=== PATIENT | female | born 1945 | race Caucasian/White ===

== ENCOUNTER 2017-01-14 10:37 | Emergency (ER) | payer BC ==
--- NOTE | 2017-01-14 10:36 | EDM.PDOC ---
ED HPI GENERAL MEDICAL PROBLEM - General Chief Complaint: Lower Extremity Injury/Pain Stated Complaint: IN BY AMBULANCE Time Seen by Provider: 01/14/17 10:35 Source of Information: Reports: Patient, EMS, RN, RN Notes Reviewed History Limitations: Reports: No Limitations - History of Present Illness INITIAL COMMENTS - FREE TEXT/NARRATIVE: Arrives from home by ambulance with c/o left hip pain sustained from a ground level fall while getting out of her truck in the garage. Denies head injury, or any other injury. Onset: Today Duration: Constant Location: Reports: Lower Extremity, Left Quality: Reports: Ache Severity: Moderate Improves with: Reports: Immobilization Worsens with: Reports: Movement Context: Reports: Other (fall) Associated Symptoms: Reports: No Other Symptoms Left Hip Pain Score (Numeric/FACES): 9 - Related Data Allergies Allergy/AdvReac Type Severity Reaction Status Date / Time No Known Allergies Allergy Verified 01/14/17 10:53 Home Meds: Home Meds Aspirin [Ecotrin] 81 mg PO DAILY 01/14/17 [History] Simvastatin [Simvastatin] 20 mg PO DAILY 01/14/17 [History] amLODIPine Besylate [Amlodipine Besylate] 5 mg PO DAILY 01/14/17 [History] Social & Family History - Family History Family Medical History: Noncontributory - Living Situation & Occupation Living situation: Reports: , with Spouse Occupation: Retired Review of Systems - Review of Systems Review Of Systems: ROS reveals no pertinent complaints other than HPI. ED EXAM, GENERAL - Physical Exam Exam: See Below Exam Limited By: No Limitations General Appearance: Alert, WD/WN, No Apparent Distress Nose: Normal Inspection Throat/Mouth: Normal Inspection, Normal Voice, No Airway Compromise Head: Atraumatic, Normocephalic Neck: Normal Inspection, Supple, Non-Tender, Full Range of Motion Respiratory/Chest: No Respiratory Distress, Lungs Clear, No Accessory Muscle Use Cardiovascular: Regular Rate, Rhythm GI/Abdominal: Normal Bowel Sounds, Soft, Non-Tender, No Distention Back Exam: Normal Inspection Extremities: Limited Range of Motion (left hip), Other (left hip tender to palp. with palpable deformity) Neurological: Alert, Oriented, CN II-XII Intact, Normal Cognition, No Motor/ Sensory Deficits Psychiatric: Normal Affect, Normal Mood Skin Exam: Warm, Dry, Intact, Normal Color, No Rash ED TRAUMA EXTREMITY PROCEDURES - Splinting Left Lower Extremity Splint Site: Left femur fracture Pre-Procedure NV Status: Normal Post-Procedure NV Status: Normal Splint Material: Other (Hare traction) Splint Design: Other (Hare traction) Applied & Form Fitted By: Provider Provider Post-Splint Application NV Check: NV Status Normal, Good Position Complications: No Course - Vital Signs Last Recorded V/S: Last Vital Signs Temp 36.4 C 01/14/17 11:36 Pulse 80 01/14/17 11:36 Resp 18 01/14/17 11:36 BP 123/52 L 01/14/17 11:36 Pulse Ox 95 01/14/17 11:36 - Orders/Labs/Meds Orders: Active Orders 24 hr Category Date Time Status Peripheral IV Care [RC] . DIRECTED Care 01/14/17 10:41 Active Sodium Chloride 0.9% [Saline Flush] Med 01/14/17 10:40 Active 10 ml FLUSH ASDIRECTED PRN Peripheral IV Insertion Adult [OM.PC] Stat Oth 01/14/17 10:40 Ordered Medication Orders Sodium Chloride (Saline Flush) 10 ml FLUSH ASDIRECTED PRN PRN Reason: Keep Vein Open Meds: Medications Generic Name Dose Route Start Last Admin Trade Name Freq PRN Reason Stop Dose Admin Sodium Chloride 10 ml 01/14/17 10:40 Saline Flush FLUSH ASDIRECTED PRN Keep Vein Open Discontinued Medications Generic Name Dose Route Start Last Admin Trade Name Freq PRN Reason Stop Dose Admin Fentanyl 100 mcg 01/14/17 11:01 01/14/17 11:14 Sublimaze IVPUSH 01/14/17 11:02 100 mcg ONETIME ONE Administration Midazolam HCl 2 mg 01/14/17 11:01 01/14/17 11:17 Versed 1 Mg/Ml IVPUSH 01/14/17 11:02 2 mg ONETIME ONE Administration Ondansetron HCl 4 mg 01/14/17 11:01 01/14/17 11:14 Zofran IV 01/14/17 11:02 4 mg ONETIME ONE Administration - Radiology Interpretation Free Text/Narrative:: Xray Left hip: displaced left proximal spiral femur shaft fracture; see Rad. report. - Re-Assessments/Exams Free Text/Narrative Re-Assessment/Exam: 01/14/17 10:47 Pt declines pain medication at time of initial exam. Departure - Departure Time of Disposition: 13:09 Disposition: DC/Tfer to Acute Hospital 02 Condition: Serious Clinical Impression: Closed femur fracture Qualifiers: Encounter type: initial encounter Femur location: shaft Fracture morphology: spiral Fracture alignment: displaced Laterality: left Qualified Code(s): S72.342A - Displaced spiral fracture of shaft of left femur, initial encounter for closed fracture - Discharge Information Forms: ED Department Discharge, Interfacility Transfer EMTALA - My Orders Last 24 Hours: My Active Orders 01/14/17 10:40 Sodium Chloride 0.9% [Saline Flush] 10 ml FLUSH ASDIRECTED PRN Peripheral IV Insertion Adult [OM.PC] Stat 01/14/17 10:41 Peripheral IV Care [RC] . DIRECTED - Assessment/Plan Last 24 Hours: My Active Orders 01/14/17 10:40 Sodium Chloride 0.9% [Saline Flush] 10 ml FLUSH ASDIRECTED PRN Peripheral IV Insertion Adult [OM.PC] Stat 01/14/17 10:41 Peripheral IV Care [RC] . DIRECTED
[2017-01-14] MEDS ORDERED: Sodium Chloride 0.9% 10 ML Syringe FLUSH PRN (10:40)
[2017-01-14] MEDS ORDERED: fentaNYL 100 MCG/2 ML SDV IVPUSH ONE (11:01)
[2017-01-14] MEDS ORDERED: Ondansetron 4 MG/2 ML SDV IV ONE (11:01)
[2017-01-14] MEDS ORDERED: Midazolam 1 MG/ML 2 ML SDV IVPUSH ONE (11:01)
--- NOTE | 2017-01-14 11:15 | CR ---
Clinical history: 71-year-old female injured left hip (ground-level fall) Interpretation: Abnormal. Single view proximal left femur and ipsilateral hip confirm acute, displaced (offset) spiral fractur e shaft proximal left femur. (6 cm below the infratrochanteric process and proximally 6 cm of lateral overlap at the fracture by the proximal femur) Generally good bone mineral density for age and no signs of ipsilateral left femoral neck fracture o r left hip joint dislocation.
[2017-01-14 11:37] VITALS: BP 123/52
--- NOTE | 2017-01-14 12:03 | CR ---
Clinical history: 71-year-old female emergency department reduction acute fracture shaft proximal le ft femur. Interpretation: Persistent medial offset (now 2.5 cm) of the distal fragment but remarkable "reducti on" and realignment (straightening) fragments at the proximal diaphyseal fracture site, left femur.
== END 2017-01-14 14:00 ==
LOC: DL.ED 10:37
DX: S72.342A Displaced spiral fracture of shaft of left femur, initial encounter for closed fracture (principal); Z79.82 Long term (current) use of aspirin; Z79.899 Other long term (current) drug therapy; W17.89XA Other fall from one level to another, initial encounter; Y92.59 Other trade areas as the place of occurrence of the external cause
CPT/HCPCS: 29505; 73501; 73551; 96374; 96375; 99285; J2250; J2405; J3010

== ENCOUNTER 2024-09-11 21:51 | Emergency (ER) | payer BC ==
[2024-09-11 22:16] LABS: HEMATOCRIT 31.3 % (37.0-47.0); HEMOGLOBIN 7.7 g/dL (12.0-16.0); MEAN CORPUSCULAR HEMOGLOBIN 22.8 pg (27.0-34.0); MEAN CORPUSCULAR HGB CONC 24.6 g/dL (33.0-35.0); MEAN CORPUSCULAR VOLUME 92.9 fL (80-100); PLATELET COUNT,PLT 93 10^3/uL (150-450); RED BLOOD CELL COUNT 3.37 10^6/uL (4.2-5.4); WHITE BLOOD CELL COUNT,WBC 16.3 10^3/uL (5.0-10.0)
[2024-09-11 22:20] VITALS: BP 107/47; PULSE 96
[2024-09-11] MEDS: Lactated Ringers 1,000 ML IV ONE (22:23)
[2024-09-11 22:41] LABS: ALANINE AMINOTRANSFERASE,ALT 32 U/L (14-59); ALKALINE PHOSPHATASE 172 U/L (46-116); ANION GAP 18.3 mEq/L (7-13); ASPARTATE AMNIOTRANSFERASE,AST 60 U/L (15-37); BILIRUBIN TOTAL 1.9 mg/dL (0.2-1.0); BLOOD UREA NITROGEN,BUN 37 mg/dL (7-18); CALCIUM 9.3 mg/dL (8.5-10.1); CARBON DIOXIDE,CO2 25 mmol/L (21-32); CHLORIDE,CL 100 mmol/L (98-107); CREATININE 2.18 mg/dL (0.55-1.02); GLUCOSE RANDOM 104 mg/dL (70-99); MAGNESIUM 1.8 mg/dL (1.8-2.4); POTASSIUM,K 5.3 mmol/L (3.5-5.1); PROTEIN TOTAL,TP 6.5 g/dL (6.4-8.2); SODIUM,NA 138 mmol/L (136-145)
[2024-09-11 22:43] LABS: A/G RATIO 0.86; ESTIMATED GFR 22 mL/min (>=60)
[2024-09-11] MEDS: Albuterol/Ipratropium 3.0-0.5 MG/3 ML Neb Soln NEB ONE ×2 (22:59→23:40)
[2024-09-11 23:03] LABS: PROTHROMBIN TIME 19.7 SEC (9.0-12.0)
[2024-09-11] MEDS: cefTRIAXone 1 GM Vial IVPUSH ONE (23:08)
[2024-09-11] MEDS: Azithromycin 500 MG in Sodium Chloride 0.9% 250 ML IV ONE (23:30)
[2024-09-11] MEDS: Pantoprazole 40 MG Vial IVPUSH ONE (23:44)
[2024-09-12 00:49] LABS: BAND PERCENT MAN 5 %; LYMPHOCYTES PERCENT MAN 4 % (20-50); MONOCYTES PERCENT MAN 16 % (2-8); NRBC MANUAL 1 /100WBC; SEG NEUTROPHILS PERCENT MAN 75 % (42-75)
== END 2024-09-12 00:38 ==
LOC: DL.ED 21:51
DX: A41.9 Sepsis, unspecified organism (principal); R65.20 Severe sepsis without septic shock; N17.9 Acute kidney failure, unspecified; I21.4 Non-ST elevation (NSTEMI) myocardial infarction; K92.2 Gastrointestinal hemorrhage, unspecified; J18.9 Pneumonia, unspecified organism; I11.0 Hypertensive heart disease with heart failure; I50.9 Heart failure, unspecified; D64.9 Anemia, unspecified; E86.0 Dehydration; E87.5 Hyperkalemia; R93.0 Abnormal findings on diagnostic imaging of skull and head, not elsewhere classified; E78.00 Pure hypercholesterolemia, unspecified; Z79.82 Long term (current) use of aspirin; Z79.899 Other long term (current) drug therapy
CPT/HCPCS: 36415; 70450; 71045; 80053; 82272; 83605; 83735; 83880; 84484; 85025; 85610; 86850; 86900; 86901; 87040; 87428; 93005; 96361; 96365; 96375; 99285; J0456; J0696; J2470; J7050; J7120; 93010; J7620-GY